=== PATIENT | female | born 2000 | race Caucasian/White ===

== ENCOUNTER 2024-02-27 07:23 | Emergency (ER) | payer OTHER, SELFPAY ==
[2024-02-27] VITALS (11 sets, daily range): BP systolic 99–118; BP diastolic 62–82; PULSE 73–90
--- NOTE | 2024-02-27 08:10 | ED.GENMED ---
History of Present Illness
General
Chief Complaint: Fainting/Passed Out
Source: patient
Exam Limitations: none
Time Seen by Provider: 02/27/24 08:07
Nursing documentation reviewed up to this point in time: agreed with
History of Present Illness
History of Present Illness:
21-year-old female woke up this morning and found her left eye to be dilated. She is feeling nauseous and then passed out. She hit the right side of her head on the wall. She denies any headache. She has a history of seizures. History of POTS.
Past History
Past History
ED Past Medical History: Seizures and Other (POTS)
ED Past Surgical History: Other (Labioplasty, nasal surgery, septal surgery)
Social History
Tobacco: Non-smoker
Alcohol: None
Drug: None
Living: with family
Employment: Employed
Review of Systems
Review of Systems
Allergies reviewed?: Yes
All Other Systems: Not applicable
Constitutional: Reports no symptoms
EENT: Reports other (Left eye dilated)
Respiratory: Reports no symptoms
Cardiac: Reports no symptoms
ABD/GI: Reports no symptoms
: Reports no symptoms
Musculoskeletal: Reports no symptoms
Skin: Reports no symptoms
Neurological: Reports no symptoms
Endocrine: Reports no symptoms
Hematologic/Lymphatic: Reports no symptoms
Psychiatric: Reports no symptoms
Phy Exam
Physical Exam
Physical Exam:
Physical Exam
General: no apparent distress, not acutely ill
Neck: supple. no meningeal signs. normal posterior pharynx
Heart: s1/s2 regular rate and rhythm, no murmur., Left pupil dilated, minimally reactive
HEENT: Pupils equal round reactive to light, EOMI
Lungs: no acute respiratory distress. clear bilaterally
Abdomen: normal bowel sounds. not tender. no CVAT
Neuro: alert and oriented. no focal neurological deficits cranial nerves II through XII intact
Skin: no rash
Psychiatric: well kept. interactive and cooperative
Extremities: no edema. no calf tenderness. negative homans. good distal pulses
Course
Orders/Labs/Results
Orders:
Orders
02/27/24 07:40
ECG [Electrocardiogram (*1)] Urgent
Reason for Study: Syncope
EKG- Treatment ONCE
02/27/24 08:38
IV Insert/Care/Rem.- Treatment PRN
02/27/24 08:40
Test Result ONCE
02/27/24 08:49
Complete Blood Count/With Diff Urgent
Comprehensive Metabolic Panel Urgent
HCG, Serum Qualitative Screen Urgent
Keppra (Levetiracetam) [S] Urgent
02/27/24 09:28
CT Head & Neck Angio W/wo IV Urgent
Comment: dissctn or any pcomm aneurysm?
Reason For Exam: Left pupil dilation, r/u right carotid dissctm
02/27/24 09:29
EEG Routine Urgent
Reason for Exam: ? Status epilepticus
02/27/24 11:25
Acetaminophen [Tylenol] 650 mg PO NOW STA
Abnormal Lab Results
02/27/24
08:49
Absolute Monos (auto) 0.7 H 10^3/uL
(0.1-0.6)
02/27/24 08:49
02/27/24 08:49
Vital Signs
Initial and Last Documented VS:
Initial Vital Signs
Temp Pulse Resp BP Pulse Ox
97.8 F 76 18 118/82 99
02/27/24 07:36 02/27/24 07:36 02/27/24 07:36 02/27/24 07:36 02/27/24 07:36
Last Documented Vital Signs
Temp Pulse Resp BP Pulse Ox
97.8 F 82 18 106/62 100
02/27/24 07:36 07/18/24 12:45 02/27/24 12:45 02/27/24 12:00 02/27/24 12:45
MDM/Problems Addressed
Differential Diagnosis Includes:
Cerebral aneurysm, seizure, migraine
MDM/Problems Addressed:
23-year-old female with left mydriasis, headache, likely migraine.
Chronic conditions affecting care: Neurological disorder (Seizures)
Acute Exacerbation and/or Progression of Chronic Illness: Neurological disorder (Seizures)
*Radiology
Radiology exam reviewed: radiology read reviewed (CT head neck angiography normal)
*Pulse Oximetry
Patient hypoxic: no
*EKG
Interpreted by ED Provider?: Yes
EKG Intrepretation Date: 02/27/24
EKG Intrepretation Time: 07:50
Interpretation: abnormal
Comparison EKG: no comparison EKG present
Heart Rate: 82
Rate: normal
Rhythm: sinus
Gilchrist: normal axis
Interval: normal interval
QRS Pattern: normal QRS
Ischemia: no ischemia
*Egg Grader Interpretation
Rate: normal
Interpretation: normal
Heart Rate: 76
Rhythm: sinus
*Critical Care Note
Total Time (30-74mins, 75-104mins- exclusive of procedures): Not Applicable
Patient Management
Discussion with other providers: Regulation Supervisor (D/w neurology, Dr. Leavitt)
Escalation/DeEscalation of care consider admission/obs:
admit not indicated
ED Attending Note
-
Portions of this chart may have been created with voice recognition software.� Occasional wrong word or��sound alike� substitutions may have occurred due to the inherent limitations of voice recognition software.
Discharge Plan
Departure
Patient Disposition: Home (Routine Discharge)
Date of Disposition: 02/27/24
Time of Disposition: 13:17
Patient with high blood pressure during this ER visit?: No
Condition: Good
Discharge Problem:
Mydriasis, Syncope
Instructions: Syncope (Fainting) (DC), Migraine in adults
Prescriptions:
No Action
norethindrone-e.estradiol-iron [Junel FE 1.5/30 (28)] 1.5 mg-30 mcg (21)/75 mg (7) Tablet
1 tab PO DAILY
levetiracetam [Keppra] 500 mg Tablet
500 mg PO BID
buspirone [BuSpar] 15 mg Tablet
15 mg PO DAILY
aripiprazole [Abilify] 2 mg Tablet
2 mg PO DAILY
desvenlafaxine succinate [Pristiq] 100 mg Tablet Extended Release 24 Hr
100 mg PO QPM
Referrals:
Sindy Thorne PA-C [Family Provider] - Call in 1-3 days for appt
Activity Restrictions/Additional Instructions:
Follow up with primary care and your neurologist. Drink caffeine today, use ibuprofen 800 mg every 8 hours as needed for headache.
Interventions
Interventions:
*Risk Screen - Suicide Last Done: 02/27/24 07:36
*General Assessment Last Done: 02/27/24 07:36
*Neglect/Abuse Screening Last Done: 02/27/24 07:36
ED- Fall Risk Assessment Last Done: 02/27/24 07:59
*ED COVID-19 Vaccine History Last Done: 02/27/24 07:48
ED- Cardiac Assessment Last Done: 02/27/24 07:50
ED- Neurological Assessment Last Done: 02/27/24 07:50
Discharge Date and Time
Print Language: ANGUILLAN
[2024-02-27 09:02] LABS: % Basophils 0.4 % (0-2); % Eosinophils 0.4 % (0-6); % Immature Granulocytes 0.2 % (0-0.5); % Lymphocytes 21.3 % (20.5-51.1); % Monocytes 8.1 % (1.7-9.3); % Neutrophils 69.6 % (42.2-75.2); Absolute Lymphocytes 1.9 10^3/uL (1.2-3.4); Absolute Monocytes 0.7 10^3/uL (0.1-0.6); Absolute Neutrophils 6.3 10^3/uL (1.4-6.5); Hematocrit 42.1 % (37.0-47.0); Hemoglobin 15.1 g/dL (12.0-16.0); Mean Corp Hgb Conc. 35.9 g/dL (33.0-37.0); Mean Corpuscular Hgb 30.4 pg (27.0-31.0); Mean Corpuscular Volume 84.7 fL (81.0-99.0); Mean Platelet Volume 9.7 fL (7.4-10.4); Nucleated Red Blood Cells % 0 %; Platelet Count 336 10^3/uL (130-400); Red Blood Cell Count 4.97 10^6/uL (4.20-5.40); Red Cell Dist. Width 12.5 % (11.5-14.5)
[2024-02-27 09:09] LABS: HCG, Serum Qualitative Screen Negative
[2024-02-27 09:11] LABS: ALT (SGPT) 22 U/L (0-35); AST (SGOT) 24 U/L (14-36); Albumin 4.5 g/dl (3.5-5.0); Alkaline Phosphatase 58 U/L (38-126); Blood Urea Nitrogen 9 mg/dl (7-17); Calcium 9.8 mg/dl (8.4-10.2); Carbon Dioxide 24 mmol/L (22-30); Chloride 105 mmol/L (98-107); Glucose 82 mg/dl (70-99); Potassium 3.5 mmol/L (3.5-5.1); Sodium 137 mmol/L (135-145); Total Bilirubin 0.4 mg/dl (0.2-1.3); Total Protein 6.9 g/dl (6.3-8.2); eGFR > 60.00
--- NOTE | 2024-02-27 09:45 | CON.NEURO4 ---
Consultation - Neurology 4
-
CONSULTING PHYSICIAN: Dennis Leavitt
REFERRING PHYSICIAN: ER
DICTATED BY: Dennis Leavitt
DATE/TIME OF REQUEST: 02/27/24
DATE/TIME OF CONSULTATION: 02/27/24
Reason for Consultation: Left pupillary dilation, syncope
History of Present Illness:
The patient is a right-handed 23-year-old woman with past medical history of epilepsy, mood disorder, POTS presented to hospital because of left eye pupillary dilation, nausea and episode of vomiting as well as episode of syncope this morning.
Patient has been in her normal state of health recently with no recent head and neck injuries no recent changes in medication or illnesses. No recent chiropractic work whiplash injuries or car accidents or neck injuries or abrupt movements of the
neck.
She woke up feeling okay when she looked in the mirror she noticed that her left pupil was abnormally large which was worrisome to her and she did start to feel some anxiety and nausea after this, she went to go tell her father and soon after this
started to feel really unwell nauseated and weak so she laid down on the floor, she was crawling to the toilet and while on the ground had a short lasting syncopal episode with leaning her head forward and then hit her head on the wall, she had very
quick recovery of consciousness and then vomited. She felt better after vomiting. Currently she feels okay with no major complaints or symptoms, feels a little bit of a sensation in the left orthodoxy near the eye but denies any significant head or
neck pain. Vision seems normal. She does have some mild photophobia nausea seems improved.
No weakness or numbness speech difficulty no paresthesia of the face. She has not had any episodes like this before.
Patient relates a history of seizures starting since childhood where she would have facial twitching and head movement that were very stereotyped and short lasting happening multiple times a day, she thinks she has been on lamotrigine at one time
but has been on 1000 mg levetiracetam twice daily for many years with no recent changes. She relates that she may have had a generalized tonic-clonic versus a psychogenic nonepileptic genic seizure around the age of 19. Her seizures never included
any pupillary dilation. The past several years she seemed to have some seizure aura without any movements manifesting with a floating sensation that improved with an increase in levetiracetam dosing.
Patient also relates a history of migraine headaches without aura in her teenager years and she did see a neurologist for this the seem to largely abated. She would definitely have photophobia but no vomiting with these episodes, they would last
several hours of severe headache.
She relates a very easy tendency towards syncope over the years.
Past Medical History: POTS, epilepsy, anxiety/depression
Surgical History: None
Family History: No family history of seizures or syncope
Social History: Working and also a student about to graduate with degree in psychology, no tobacco, no alcohol, no recreational drugs
Allergies: No known drug allergies
Review of Symptoms:
Patient denies any fever, headache, chest pain, shortness of breath, GI or symptoms.
Physical Exam:
Well-appearing young woman with no signs of distress, in a dark room when I walked into the examination room, no signs of head or neck trauma neck is supple full range of motion no cervical spine abnormality palpation neck with no masses no
meningismus, eyes are clear, oropharynx is clear with no tongue lacerations, no ptosis, left eye mydriasis is noted but no erythema of the eyes or outward abnormality of the eyes or orbits.
Neurologic Examination:
The patient is awake, alert and oriented x 3. She is able to follow commands and answer questions appropriately. There is no aphasia or dysarthria. On cranial nerve assessment, in dark lighting left pupil is fixed and dilated at 5mm and unreactive
to light, right pupil 3mm and reactive to light, there is no ptosis. Visual gallardo are full. Extraocular movements are intact no ophthalmoplegia seen. Facial sensations are intact and bilaterally symmetrical, there is no facial asymmetry. Hearing is
intact bilaterally to normal conversation volume. Tongue palate and uvula are midline. Sternocleidomastoid strengths are full bilaterally. Motor strengths are 5/5 bilateral upper and lower extremities on medical research [place] scale. There is no
drift or involuntary movement noted. Deep tendon reflexes are 2+ bilateral upper and lower extremities and Babinski is absent bilaterally. Intact to light touch throughout. There was no extinction noted on double simultaneous stimulation.
Coordination is intact by finger to nose bilaterally.
Neuro Imaging:
CT head and CTA head and neck pending
Impressions
1. Left eye mydriasis associated with nausea/vomiting, improved now and has some mild photophobia, minimal sensation on the left orthodoxy with no significant headache. Most likely had a vasovagal syncope episode from the nausea. Vision is normal.
Normal extra ocular movements of the left eye. This could be a migraine aura phenomenon, she does have a clear history of previous migraines. Would be important to rule out a left sided posterior communicating or nearby cerebral aneurysm as
cause. Occasionally seizures can cause pupillary changes but patient has had no typical seizure activity. Left carotid dissection would not cause left pupillary dilation. She seems far too young and without risk factors to have angle closure
glaucoma and also has no significant pain or discomfort. No recent exposure to topical chemicals or medications that would cause the left eye pupillary dilation.
2. History of epilepsy, unclear if generalized or focal, controlled, without status epilepticus
3. History of POTS
4. History of mood disorder
Recommendations:
1. Check CTA head and neck
2. Check EEG, unless there is active seizure would keep her on the same dose of Levetiracetam as home
3. If the above results are reassuring then diagnosis is likely a migraine aura which can in a minority of patients cause pupillary changes, she had nausea and has some mild photophobia. Would treat with conservative measures like PRN Tylenol,
Ibuprofen, caffeine. With no significant headache would rather avoid the potential for further migraine medications that could cause side effects.
Discussed patient care with: Patient and her father, Dr Last
[2024-02-27] MEDS: TYLENOL 650 MG PO (11:29)
--- NOTE | 2024-02-27 13:08 | EEG.RPT ---
Electroencephalogram Report
Recording
Date of EE02/27/24
Length of EEG recordin minutes
Patient Status: Inpatient
Recording Conditions: Awake and Drowsy
Hyperventilation Performed: Yes
Photic Stimulation Performed: Yes
Hand Dominance: Right
Report
LESS THAN 1 HOUR EEG REPORT
METHODS:
A 21 channel digitized electroencephalogram (EEG) was performed in the clinical neurophysiology lab using the 10/20 international system of electrode placement and one-lead of ECG recorded. Video was performed. Study lasted 25 mintues.
ELECTROENCEPHALOGRAPHER IMPRESSION(S):
Quality of study
Good
Background
Mixed medium amplitude background of theta and alpha activity
Normal posterior dominant rhythm of 10 hz seen which attenuates with ey eopening
There were no significant asymmetries of background activity noted.
Sleep
Drowsiness present
Stage I present
Hyperventilation
Generalized physiologic slowing seen without any epileptiform changes
Photic Stimulation
No activation
ECG
Normal sinus rhythm
Abnormalities
None seen, no seizures or interictal epileptiform discharges
LESS THAN 1 HOUR EEG INTERPRETATION:
Unremarkable EEG for age
CLINICAL CORRELATION:
A normal EEG does not rule out a diagnosis of epilepsy.� If clinical suspicion for seizure persists, a prolonged recording may be warranted.
Clinical correlation is advised.
[2024-02-28 16:04] LABS: Keppra (Levetiracetam) 6 ug/mL (10-40)
== END 2024-02-27 13:49 | disposition home or self-care (01) ==
LOC: EMR 07:23
PROVIDERS: EMERGENCY PHYSICIAN Emergency Medicine; FAMILY PHYSICIAN Physician Assistant Medical; OTHER PHYSICIAN Student in an Organized Health Care Education/Training Program
DX: H57.04 Mydriasis (principal); R55 Syncope and collapse; G40.909 Epilepsy, unspecified, not intractable, without status epilepticus; G90.A Postural orthostatic tachycardia syndrome [POTS]; F39 Unspecified mood [affective] disorder; F41.9 Anxiety disorder, unspecified
CPT/HCPCS: 99284; 70496; 70498; 80053; 80177; 84703; 85025; 93005; 95816; Q9967